=== PATIENT | female | born 1985 | race Caucasian/White ===

== ENCOUNTER 2020-11-28 20:11 | Emergency (ER) | payer BC ==
[~2020-11-28] VITALS: Ht 170.2 cm; Wt 65.0 kg
[2020-11-28 20:46] VITALS: BP 115/80
== END 2020-11-28 21:15 | disposition left against medical advice (07) ==
LOC: ER 20:11
DX: S91.119A Laceration without foreign body of unspecified toe without damage to nail, initial encounter (principal); Z53.21 Procedure and treatment not carried out due to patient leaving prior to being seen by health care provider; X58.XXXA Exposure to other specified factors, initial encounter; Y93.89 Activity, other specified; Y92.89 Other specified places as the place of occurrence of the external cause; Y99.8 Other external cause status